=== PATIENT | female | born 1950 | race American Indian/Alaskan Native ===

== ENCOUNTER 2017-01-18 00:24 | Emergency (ER) | payer MEDICARE ==
--- NOTE | 2017-01-18 04:32 | Emergency Department Report ---
ED General Adult HPI - General Chief complaint: Medical Clearance Stated complaint: WITHDRAWALS Time Seen by Provider: 01/18/17 04:08 Source: patient, EMS Mode of arrival: Stretcher Limitations: No Limitations - History of Present Illness Initial comments: Patient is a 67-year-old female has medical history of bipolar disorder, depression and polysubstance abuse who presents with withdrawals. Patient is a patient of [facility] who was on Suboxone for drug treatment. However she states that she is having withdrawals and having aches and pains throughout her body. Patient states that she has some nausea and vomiting. Patient denies having any suicidal or homicidal ideation. Patient states that her symptoms are severe she says nothing makes it better or worse. She says that she has cold sweats and bad body aches. The body aches are 7 out of 10 nothing makes it better or worse. Severity scale (0 -10): 0 - Related Data Previous Rx's Medication Instructions Recorded Last Taken Type Gabapentin [Neurontin] 100 mg PO Q8HR #20 capsule 01/18/17 Unknown Rx hydrOXYzine HCL [Atarax] 25 mg PO Q6HR #30 tablet 01/18/17 Unknown Rx Allergies Allergy/AdvReac Type Severity Reaction Status Date / Time No Known Allergies Allergy Unverified 01/18/17 05:17 ED Review of Systems ROS: Stated complaint: WITHDRAWALS Other details as noted in HPI Constitutional: diaphoresis, weakness. denies: chills, fever Eyes: denies: eye pain, eye discharge, vision change ENT: denies: ear pain, throat pain Respiratory: denies: cough, shortness of breath, wheezing Cardiovascular: denies: chest pain, palpitations Endocrine: no symptoms reported Gastrointestinal: nausea, vomiting, diarrhea. denies: abdominal pain Genitourinary: denies: urgency, dysuria, discharge Musculoskeletal: myalgia. denies: back pain, joint swelling, arthralgia Skin: denies: rash, lesions Neurological: denies: headache, weakness, paresthesias Psychiatric: denies: anxiety, depression Hematological/Lymphatic: denies: easy bleeding, easy bruising ED Past Medical Hx - Past Medical History Previous Medical History?: Yes Hx Psychiatric Treatment: Yes (bipolar and depression) Additional medical history: drug abuse. chronic venous insufficiency. sciatica. back fxr x3. scoliosis - Surgical History Past Surgical History?: Yes Additional Surgical History: x1 - Social History Smoking Status: Current Every Day Smoker Substance Use Type: Heroin, Prescribed - Medications Home Medications: Home Medications Medication Instructions Recorded Confirmed Last Taken Type Gabapentin [Neurontin] 100 mg PO Q8HR #20 capsule 01/18/17 Unknown Rx hydrOXYzine HCL [Atarax] 25 mg PO Q6HR #30 tablet 01/18/17 Unknown Rx ED Physical Exam - General Limitations: No Limitations General appearance: alert, in no apparent distress - Head Head exam: Present: atraumatic, normocephalic - Eye Eye exam: Present: normal appearance - ENT ENT exam: Present: mucous membranes moist - Neck Neck exam: Present: normal inspection - Respiratory Respiratory exam: Present: normal lung sounds bilaterally. Absent: respiratory distress - Cardiovascular Cardiovascular Exam: Present: regular rate, normal rhythm. Absent: systolic murmur, diastolic murmur, rubs, gallop - GI/Abdominal GI/Abdominal exam: Present: soft, normal bowel sounds - Extremities Exam Extremities exam: Present: normal inspection - Back Exam Back exam: Present: normal inspection - Neurological Exam Neurological exam: Present: alert, oriented X3 - Psychiatric Psychiatric exam: Present: normal affect, normal mood - Skin Skin exam: Present: warm, dry, intact, normal color. Absent: rash ED Course Vital Signs 01/18/17 01/18/17 01/18/17 01:36 12:01 18:42 Temperature 98.7 F Pulse Rate 72 90 73 Respiratory 18 16 16 Rate Blood Pressure 103/65 Blood Pressure 103/65 123/69 142/60 [Right] O2 Sat by Pulse 100 93 95 Oximetry ED Medical Decision Making - Lab Data Result diagrams: 01/18/17 04:30 01/18/17 04:30 Lab Results 01/18/17 01/18/17 Range/Units 04:30 04:30 WBC 4.6 (4.5-11.0) K/mm3 RBC 4.07 (3.65-5.03) M/mm3 Hgb 11.4 (10.1-14.3) gm/dl Hct 34.7 (30.3-42.9) % MCV 85 (79-97) fl MCH 28 (28-32) pg MCHC 33 (30-34) % RDW 15.3 H (13.2-15.2) % Plt Count 171 (140-440) K/mm3 Sodium 138 (137-145) mmol/L Potassium 3.9 (3.6-5.0) mmol/L Chloride 98.4 (98-107) mmol/L Carbon Dioxide 28 (22-30) mmol/L Anion Gap 16 mmol/L BUN 8 (7-17) mg/dL Creatinine 0.5 L (0.7-1.2) mg/dL Estimated GFR > 60 ml/min BUN/Creatinine Ratio 16 % Glucose 94 (65-100) mg/dL Calcium 8.8 (8.4-10.2) mg/dL Total Bilirubin 0.50 (0.1-1.2) mg/dL AST 17 (5-40) units/L ALT 9 (7-56) units/L Alkaline Phosphatase 123 (35-129) units/L Total Protein 8.0 (6.3-8.2) g/dL Albumin 4.0 (3.9-5) g/dL Albumin/Globulin Ratio 1.0 % - Medical Decision Making Chief medical diagnosis: Opiate withdrawal Differential medical diagnosis: Alcohol intoxication, metabolic abnormality, electrolyte abnormality CBC, CMP, urine drug screen I will treat patient's symptoms with Atarax, gabapentin. Will send the patient to [facility]. Discussed outpatient patient agrees with plan. Patient is not having any homicidal suicidal ideation at this time. I will have case picker and renal social worker arrange placement for the patient. Discussed plan with patient and additional verbal discharge instructions were given. Critical care attestation.: If time is entered above; I have spent that time in minutes in the direct care of this critically ill patient, excluding procedure time. ED Disposition Clinical Impression: Opioid withdrawal Disposition: DC-01 TO HOME OR SELFCARE Is pt being admited?: No Does the pt Need Aspirin: No Condition: Stable Instructions: Opioid Withdrawal (ED) Prescriptions: Gabapentin [Neurontin] 100 mg PO Q8HR #20 capsule hydrOXYzine HCL [Atarax] 25 mg PO Q6HR #30 tablet Referrals: BEBE SULLIVAN MD [Staff Physician] - 3-5 Days
[2017-01-18] MEDS: ATARAX PO ONE (04:53)
[2017-01-18 05:08] LABS: Hematocrit 34.7 % (30.3-42.9); Hemoglobin 11.4 gm/dl (10.1-14.3); Mean Corpuscular HGB Conc 33 % (30-34); Mean Corpuscular Hemoglobin 28 pg (28-32); Mean Corpuscular Volume 85 fl (79-97); Platelet Count 171 K/mm3 (140-440); Red Blood Count 4.07 M/mm3 (3.65-5.03); Red Cell Distribution Width 15.3 % (13.2-15.2); White Blood Count 4.6 K/mm3 (4.5-11.0)
[2017-01-18] MEDS ORDERED: ZOFRAN ODT ONE (05:16)
[2017-01-18] MEDS: NEURONTIN PO ONE (05:17)
[2017-01-18] MEDS: ZOFRAN PO ONE (05:17)
[2017-01-18 05:25] LABS: Alanine Aminotransferase 9 units/L (7-56); Alkaline Phosphatase 123 units/L (35-129); Anion Gap 16 mmol/L; BUN/Creatinine Ratio 16; Blood Urea Nitrogen 8 mg/dL (7-17); Calcium 8.8 mg/dL (8.4-10.2); Carbon Dioxide 28 mmol/L (22-30); Chloride 98.4 mmol/L (98-107); Glucose 94 mg/dL (65-100); Potassium 3.9 mmol/L (3.6-5.0); Sodium 138 mmol/L (137-145)
[2017-01-18] MEDS: PHENERGAN PO ONE (14:36)
[2017-01-19 11:24] VITALS: BP 140/83
== END 2017-01-19 15:00 | disposition home or self-care (01) ==
LOC: ED 00:24
DX: F11.23 Opioid dependence with withdrawal (principal); F31.9 Bipolar disorder, unspecified; F17.200 Nicotine dependence, unspecified, uncomplicated
CPT/HCPCS: 36415; 80053; 85027; 99284; Q0162; Q0169